=== PATIENT | female | born 1995 | race Two or more races ===

== ENCOUNTER → 2017-04-08 | Outpatient (REF) | payer MEDICAID ==
[~2017-04-08] MED LIST: /MOM400 PO; ACET50TA PO; DOCU10ELUD PO
[2017-04-08 16:21] LABS: MEAN CORPUSCULAR HEMOGLOBIN 31.7 pg (27.0-33.0); MEAN CORPUSCULAR HGB CONC 31.9 g/dl (32.0-36.5); MEAN CORPUSCULAR VOLUME 99.5 fl (80.0-96.0); RED CELL DISTRIBUTION WIDTH 12.6 % (11.5-14.5); WHITE BLOOD COUNT 4.2 10^3/uL (4.0-10.0)
[2017-04-08 16:56] LABS: VITAMIN B12 LEVEL 289 PG/ML (247-911)
[2017-04-08 17:17] LABS: ALBUMIN 3.7 GM/DL (3.2-5.2); ALBUMIN/GLOBULIN RATIO 1.23 (1.00-1.93); ALKALINE PHOSPHATASE 49 U/L (45-117); ALT/SGPT 12 U/L (12-78); ANION GAP 4 MEQ/L (8-16); AST/SGOT 13 U/L (15-37); BILIRUBIN,TOTAL 0.3 MG/DL (0.2-1.0); BLOOD UREA NITROGEN 11 MG/DL (7-18); CALCIUM LEVEL 8.4 MG/DL (8.5-10.1); CARBON DIOXIDE LEVEL 31 MEQ/L (21-32); CHLORIDE LEVEL 107 MEQ/L (98-107); CREATININE FOR GFR 0.62 MG/DL (0.55-1.02); FERRITIN 18 NG/ML (8-252); GLOMERULAR FILTRATION RATE > 60.0 (>60); GLUCOSE, FASTING 71 MG/DL (70-105); PERCENT SATURATION 12.6 % (13.2-45.0); POTASSIUM SERUM 4.5 MEQ/L (3.5-5.1); SODIUM LEVEL 142 MEQ/L (136-145); TOTAL IRON BINDING CAPACITY 340 UG/DL (250-450); TOTAL PROTEIN 6.7 GM/DL (6.4-8.2)
== END ==
LOC: M SFHCPLAZ 14:35
PROVIDERS: ATTEND Nurse Practitioner Adult Health
DX: Z86.2 Personal history of diseases of the blood and blood-forming organs and certain disorders involving the immune mechanism (principal); Z83.49 Family history of other endocrine, nutritional and metabolic diseases

== ENCOUNTER 2017-05-29 09:52 | Emergency (ER) | payer MEDICAID, OTHER ==
[~2017-05-29] VITALS: Ht 167.6 cm; Wt 58.2 kg
[2017-05-29 09:52] VITALS: BP 129/58
[2017-05-29] MEDS ORDERED: RANI15TA PO (09:58)
--- NOTE | 2017-05-29 10:48 | REP ---
Clinical: Trauma. Technique: AP, lateral, bilateral oblique views of the right fourth and fifth digits. Findings: There is a small nondisplaced corner fracture at the base of the fourth distal phalanx. No other fracture dislocation appreciated. Remainder examination appears normal. Impression: Nondisplaced corner fracture at the base of the fourth distal phalanx. Signed by Laureano Weiss MD 05/29/2017 10:39 A
--- NOTE | 2017-05-29 10:52 | REP ---
Clinical: Trauma. Technique: AP cephalic and caudal angled views of the sacrum with lateral view of the sacrum. Findings: Sacroiliac joints are symmetric and within normal limits. The sacrum appears intact. No obvious sacrococcygeal fracture or subluxation is appreciated. Impression: No obvious acute fracture. Signed by Laureano Weiss MD 05/29/2017 10:43 A
== END 2017-05-29 11:11 | disposition home or self-care (01) ==
LOC: M ED 09:52
DX: S30.0XXA Contusion of lower back and pelvis, initial encounter (principal); S62.344A Nondisplaced fracture of base of fourth metacarpal bone, right hand, initial encounter for closed fracture; Y04.8XXA Assault by other bodily force, initial encounter; Y92.018 Other place in single-family (private) house as the place of occurrence of the external cause; Y93.89 Activity, other specified; Y99.8 Other external cause status; Z79.899 Other long term (current) drug therapy

== ENCOUNTER 2017-06-26 10:28 | Emergency (ER) | payer OTHER ==
[2017-06-26 11:10] LABS: BASO % 0.3 % (0.0-1.0); EOS # 0.1 10^3/uL (0.0-0.50); EOS % 1.5 % (0.0-3.0); IMMATURE GRANULOCYTE % 0.3 % (0-0); LYMPH # 1.5 10^3/uL (1.5-6.5); LYMPH % 25.6 % (24.0-44.0); MEAN CORPUSCULAR HEMOGLOBIN 30.7 pg (27.0-33.0); MEAN CORPUSCULAR HGB CONC 33.2 g/dl (32.0-36.5); MEAN CORPUSCULAR VOLUME 92.6 fl (80.0-96.0); MONO # 0.2 10^3/uL (0.0-0.8); MONO % 3.7 % (0.0-5.0); NEUTROPHILS # 4.1 10^3/uL (1.8-7.7); NEUTROPHILS % 68.6 % (36.0-66.0); PLATELET COUNT, AUTOMATED 231 10^3/uL (150-450); RED CELL DISTRIBUTION WIDTH 12.3 % (11.5-14.5); WHITE BLOOD COUNT 5.9 10^3/uL (4.0-10.0)
[2017-06-26 11:18] LABS: AMORPHOUS SEDIMENT RFX SMALL (NEGATIVE); KETONE, URINE AUTO RFX NEGATIVE (NEGATIVE); LEUKOCYTE ESTERASE UR AUTO RFX NEGATIVE (NEGATIVE); NITRITE, URINE AUTO RFX NEGATIVE (NEGATIVE); RBC, URINE AUTO RFX 4 /HPF (0-3); SQUAM EPITHELIAL CELL UR AURFX 3 /HPF (0-6); WBC, URINE AUTO RFX 2 /HPF (0-3)
[2017-06-26 11:57] LABS: ANION GAP 5 MEQ/L (8-16); BLOOD UREA NITROGEN 8 MG/DL (7-18); CALCIUM LEVEL 8.5 MG/DL (8.5-10.1); CARBON DIOXIDE LEVEL 27 MEQ/L (21-32); CHLORIDE LEVEL 105 MEQ/L (98-107); CREATININE FOR GFR 0.54 MG/DL (0.55-1.02); GLOMERULAR FILTRATION RATE > 60.0 (>60); GLUCOSE, FASTING 87 MG/DL (70-105); HCG, SERUM QUANTITATIVE 13117 MIU/ML; POTASSIUM SERUM 3.6 MEQ/L (3.5-5.1); SODIUM LEVEL 137 MEQ/L (136-145)
== END 2017-06-26 12:21 | disposition home or self-care (01) ==
LOC: M ED 10:28
DX: O26.891 Other specified pregnancy related conditions, first trimester (principal); R10.2 Pelvic and perineal pain; Z3A.01 Less than 8 weeks gestation of pregnancy
CPT/HCPCS: 76801

== ENCOUNTER → 2017-07-16 | Outpatient (CLI) | payer OTHER ==
[2017-07-16 13:20] LABS: BASO % 0.4 % (0.0-1.0); EOS % 0.6 % (0.0-3.0); HEMATOCRIT 38.7 % (36.0-47.0); HEMOGLOBIN 12.9 g/dl (12.0-16.0); IMMATURE GRANULOCYTE % 0.2 % (0-0); LYMPH # 1.8 10^3/uL (1.5-6.5); MEAN CORPUSCULAR HEMOGLOBIN 30.9 pg (27.0-33.0); MEAN CORPUSCULAR HGB CONC 33.3 g/dl (32.0-36.5); MEAN CORPUSCULAR VOLUME 92.8 fl (80.0-96.0); MONO # 0.4 10^3/uL (0.0-0.8); MONO % 7.4 % (0.0-5.0); NEUTROPHILS % 57.4 % (36.0-66.0); PLATELET COUNT, AUTOMATED 280 10^3/uL (150-450); RED BLOOD COUNT 4.17 10^6/uL (4.00-5.40); RED CELL DISTRIBUTION WIDTH 12.5 % (11.5-14.5); WHITE BLOOD COUNT 5.3 10^3/uL (4.0-10.0)
[2017-07-16 13:55] LABS: RUBELLA IgG QUALITATIVE IMMUNE (IMMUNE)
[2017-07-16 13:56] LABS: HBsAg Prenatal NEGATIVE (NEGATIVE)
[2017-07-16 14:24] LABS: HEPATITIS C VIRUS ABY INDEX 0.1 INDEX (<0.8)
[2017-07-16 14:25] LABS: HIV 1&2 SCREEN CENTAUR NEGATIVE (NEGATIVE)
[2017-07-16 16:49] LABS: CHLAMYDIA DNA AMPLIFICATION NEGATIVE (NEGATIVE); GC DNA AMPLIFICATION NEGATIVE (NEGATIVE)
== END ==
LOC: M SMT 09:14
DX: Z36.89 Encounter for other specified antenatal screening (principal); Z3A.09 9 weeks gestation of pregnancy
CPT/HCPCS: 86762

== ENCOUNTER 2017-09-07 18:50 | Emergency (ER) | payer OTHER ==
[2017-09-07 20:48] LABS: APPEARANCE, URINE HAZY (CLEAR); BACTERIA, URINE AUTO NEGATIVE (NEGATIVE); BILIRUBIN, URINE AUTO NEGATIVE (NEGATIVE); BLOOD, URINE BLOOD NEGATIVE (NEGATIVE); CALCIUM OXALATE CRYSTALS SMALL; COLOR, URINE AMBER (YELLOW); GLUCOSE, URINE (UA) AUTO NEGATIVE (NEGATIVE); KETONE, URINE AUTO TRACE mg/dL (NEGATIVE); LEUKOCYTE ESTERASE, URINE AUTO 2+ (NEGATIVE); MUCUS, URINE SMALL (NEGATIVE); NITRITE, URINE AUTO NEGATIVE (NEGATIVE); PROTEIN, URINE AUTO NEGATIVE (NEGATIVE); RBC, URINE AUTO 2 /HPF (0-3); SPECIFIC GRAVITY URINE AUTO 1.024 (1.002-1.035); SQUAMOUS EPITHELIAL CELL UR AU 2 /HPF (0-6); WBC, URINE AUTO 7 /HPF (0-3)
[2017-09-07 21:52] LABS: HCG, SERUM QUANTITATIVE 4538 MIU/ML
== END 2017-09-07 22:49 | disposition home or self-care (01) ==
LOC: M ED 18:50
DX: O20.0 Threatened abortion (principal); Z3A.17 17 weeks gestation of pregnancy
CPT/HCPCS: 76811

== ENCOUNTER → 2017-09-19 | Outpatient (CLI) | payer OTHER | LOC: M RAD 09:32 | DX: Z34.82 Encounter for supervision of other normal pregnancy, second trimester (principal); Z3A.19 19 weeks gestation of pregnancy | CPT/HCPCS: 76816 ==

== ENCOUNTER → 2017-10-13 | Outpatient (CLI) | payer OTHER | LOC: M RAD 15:03 | DX: Z34.82 Encounter for supervision of other normal pregnancy, second trimester (principal) | CPT/HCPCS: 76816 ==

== ENCOUNTER → 2018-01-12 | Outpatient (CLI) | payer OTHER | LOC: M RAD 14:40 | DX: Z34.83 Encounter for supervision of other normal pregnancy, third trimester (principal); Z36.89 Encounter for other specified antenatal screening; Z3A.35 35 weeks gestation of pregnancy | CPT/HCPCS: 76816 ==

== ENCOUNTER → 2018-01-16 | Outpatient (REF) | payer OTHER | LOC: M LAB REF 17:01 | DX: Z34.83 Encounter for supervision of other normal pregnancy, third trimester (principal); Z3A.00 Weeks of gestation of pregnancy not specified | CPT/HCPCS: 87081 ==

== ENCOUNTER 2018-01-29 15:47 | Inpatient (IN) | payer OTHER ==
[2018-01-29] MEDS: LR 1,000 ML IV (16:49)
[2018-01-29] MEDS: LACTATED RINGER'S 1000 ML IV (17:08)
[2018-01-29 17:11] LABS: HEMATOCRIT 31.8 % (36.0-47.0); HEMOGLOBIN 10.5 g/dl (12.0-15.5); MEAN CORPUSCULAR HEMOGLOBIN 30.8 pg (27.0-33.0); MEAN CORPUSCULAR VOLUME 93.3 fl (80.0-96.0); PLATELET COUNT, AUTOMATED 251 10^3/uL (150-450); RED BLOOD COUNT 3.41 10^6/uL (4.00-5.40); RED CELL DISTRIBUTION WIDTH 13.4 % (11.5-14.5)
[2018-01-29] MEDS: OXYTOCIN DRIP 30 UNITS in APPROPRIATE DILUENT 1 EA IV (17:25)
[2018-01-30] MEDS ORDERED: FENTANYL 2MCG/ML ROPIVACAINE 0.2% IN 0.9% NACL 200ML IVBAG As Ordered (00:27)
[2018-01-30] MEDS ORDERED: ONDANSETRON 4MG/2ML VIAL (J2405) As Ordered (01:21)
[2018-01-30] MEDS ORDERED: ONDANSETRON 4MG/2ML VIAL (J2405) IV ×2 (01:30→02:00)
[2018-01-30] MEDS ORDERED: LR 1,000 ML IV (01:54)
[2018-01-30] MEDS ORDERED: DOCUSATE SODIUM 100 MG CAP PO (02:00)
[2018-01-30] MEDS ORDERED: PROMETHAZINE 25 MG TAB PO (02:00)
[2018-01-30] MEDS ORDERED: RHOGAM 300 MCG (1500 IU) INJ (J2790) IM (02:00)
[2018-01-30] MEDS ORDERED: DIBUCAINE 1% OINTMENT 30GM TOP (02:00)
[2018-01-30] MEDS ORDERED: ACETAMINOPHEN 500 MG TAB PO (02:00)
[2018-01-30] MEDS ORDERED: IBUPROFEN 800 MG TAB PO (02:00)
[2018-01-30] MEDS ORDERED: MEASLES,MUMPS,RUBELLA VACCINE INJ (MMR-II) (90707) SC (02:00)
[2018-01-30] MEDS: OXYTOCIN DRIP 30 UNITS in APPROPRIATE DILUENT 1 EA IV (05:06)
[2018-01-30] MEDS: PRENATAL VITAMINS CHEWABLE TABLET PO (09:04)
[2018-01-31] MEDS: PRENATAL VITAMINS CHEWABLE TABLET PO (09:17)
== END 2018-01-31 15:50 | disposition home or self-care (01) | DRG 560 ==
LOC: M LDO 15:47 → M OBS 01-30 04:21 → M LDI 16:48
PROC: 10E0XZZ Delivery of Products of Conception, External Approach (ICD-10-PCS; principal; 2018-01-30)
DX: O69.81X0 Labor and delivery complicated by cord around neck, without compression, not applicable or unspecified (principal); Z37.0 Single live birth; Z3A.37 37 weeks gestation of pregnancy

== ENCOUNTER 2019-05-25 19:50 | Emergency (ER) | payer OTHER ==
[~2019-05-25] VITALS: Ht 167.6 cm; Wt 45.4 kg
[~2019-05-25 19:50] MED LIST changes: -/MOM400 PO; -ACET50TA PO; -DOCU10ELUD PO; +DOCU5LIQ PO; +IBUP-1114 PO; +MAPA500T17 PO; +MAPA500T2 PO; +MILK10SU PO; +PREN1TAB11 PO; +RANI15TA PO; +ZANT150T15 PO
[2019-05-25] MEDS ORDERED: NEXP1IMP SC (19:59)
--- NOTE | 2019-05-25 20:59 | REPVR ---
PROCEDURE INFORMATION: Exam: CT Head Without Contrast Exam date and time: 05/25/2019 8:13 PM Age: 24 years old Clinical history: Injury or trauma; Fall; Initial encounter; Blunt trauma (contusions or hematomas); Additional info: Fell off of couch, head injury w/ loc TECHNIQUE: Imaging protocol: Computed tomography of the head without contrast. Radiation optimization: All CT scans at this facility use at least one of these dose optimization techniques: automated exposure control; mA and/or kV adjustment per patient size (includes targeted exams where dose is matched to clinical indication); or iterative reconstruction. COMPARISON: No relevant prior studies available. FINDINGS: Brain: Normal. No hemorrhage. Unremarkable white matter. No mass effect. Ventricles: Normal. No ventriculomegaly. Bones/joints: Unremarkable. No acute fracture. Sinuses: Visualized sinuses are unremarkable. No fluid levels. Mastoid air cells: Visualized mastoid air cells are well aerated. Soft tissues: Unremarkable. IMPRESSION: Negative noncontrast head CT. Electronically signed by: Reagan Cotto On 05/25/2019 20:59:20 PM
--- NOTE | 2019-05-25 21:03 | REPVR ---
PROCEDURE INFORMATION: Exam: CT Cervical Spine Without Contrast Exam date and time: 05/25/2019 8:53 PM Age: 24 years old Clinical history: Injury or trauma; Fall; Initial encounter; Blunt trauma TECHNIQUE: Imaging protocol: Computed tomography images of the cervical spine without contrast. Radiation optimization: All CT scans at this facility use at least one of these dose optimization techniques: automated exposure control; mA and/or kV adjustment per patient size (includes targeted exams where dose is matched to clinical indication); or iterative reconstruction. COMPARISON: No relevant prior studies available. FINDINGS: Vertebrae: No acute fracture. Normal alignment. Discs/Spinal canal/Neural foramina: No spinal stenosis. No neural foraminal narrowing. Soft tissues: Unremarkable. Lungs: Lung apices are normal. IMPRESSION: Negative CT cervical spine. No fracture or subluxation is evident and no spinal or foraminal stenosis. Electronically signed by: Reagan Cotto On 05/25/2019 21:03:33 PM
[2019-05-25 22:54] VITALS: BP 102/63
--- NOTE | 2019-05-26 07:42 | REP ---
Clinical: Trauma . Technique: Internal rotation, external rotation, and Y view right shoulder . Findings: No acute fracture or dislocation. The acromioclavicular and glenohumeral joints are intact. No periarticular calcifications or degenerative changes are appreciated. Sub acromial space is normal. Surrounding soft tissues are unremarkable. Impression: Normal right shoulder radiographs. Electronically Signed by Laureano Weiss MD 05/26/2019 07:34 A
== END 2019-05-25 23:05 | disposition home or self-care (01) ==
LOC: M ED 19:50
DX: S16.1XXA Strain of muscle, fascia and tendon at neck level, initial encounter (principal); S06.0X9A Concussion with loss of consciousness of unspecified duration, initial encounter; S43.51XA Sprain of right acromioclavicular joint, initial encounter; W08.XXXA Fall from other furniture, initial encounter; Y92.099 Unspecified place in other non-institutional residence as the place of occurrence of the external cause; Y93.9 Activity, unspecified; Y99.9 Unspecified external cause status; K21.9 Gastro-esophageal reflux disease without esophagitis; Z79.3 Long term (current) use of hormonal contraceptives

== ENCOUNTER 2022-04-16 07:17 | Emergency (ER) | payer OTHER ==
[~2022-04-16] VITALS: Ht 167.6 cm; Wt 54.5 kg
[~2022-04-16 07:17] MED LIST changes: +ETON68IM SC
[2022-04-16] MEDS ORDERED: NAPR220C14 PO (07:29)
[2022-04-16] MEDS ORDERED: MORPHINE 10 MG/ML 1ML VIAL IM ONE (09:20)
[2022-04-16] MEDS ORDERED: ONDANSETRON 4MG ORAL DISINTEGRATING TAB PO ONE (09:20)
[2022-04-16] MEDS ORDERED: PERC5TAB12 PO (11:29)
[2022-04-16 11:49] VITALS: BP 121/62
== END 2022-04-16 11:51 | disposition home or self-care (01) ==
LOC: M ED 07:17
DX: S76.012A Strain of muscle, fascia and tendon of left hip, initial encounter (principal); S89.92XA Unspecified injury of left lower leg, initial encounter; Y92.099 Unspecified place in other non-institutional residence as the place of occurrence of the external cause
CPT/HCPCS: 73502; 73564; 96372; 99284; J2270

== ENCOUNTER 2022-04-29 15:05 | Emergency (ER) | payer OTHER ==
[~2022-04-29 15:05] MED LIST changes: +NAPR220C14 PO; +PERC5TAB12 PO
[2022-04-29] MEDS ORDERED: tiZANidine 4 MG TAB PO ONE (15:30)
[2022-04-29] MEDS ORDERED: ACETAMINOPHEN 325 MG TAB PO ONE (15:30)
[2022-04-29] MEDS ORDERED: IBUP-1022 PO (16:04)
[2022-04-29] MEDS ORDERED: ZANA4TAB PO (16:04)
[2022-04-29] MEDS ORDERED: ACET325C5 PO (16:04)
[2022-04-29 16:37] VITALS: BP 123/70
== END 2022-04-29 16:43 | disposition home or self-care (01) ==
LOC: M ED 15:05 → EDBD 15:05 → M ED 16:43
DX: S83.412A Sprain of medial collateral ligament of left knee, initial encounter (principal); W01.0XXA Fall on same level from slipping, tripping and stumbling without subsequent striking against object, initial encounter; Z79.899 Other long term (current) drug therapy

== ENCOUNTER → 2022-06-12 | Outpatient (CLI) | payer OTHER ==
[~2022-06-12] MED LIST changes: +ACET325C5 PO; +IBUP-1022 PO; +ZANA4TAB PO
[2022-06-12 14:59] LABS: BASO % 0.4 % (0.0-1.0); EOS # 0.1 10^3/uL (0.0-0.5); EOS % 1.1 % (0.0-3.0); HEMATOCRIT 38.9 % (36.0-47.0); HEMOGLOBIN 12.3 g/dl (12.0-15.5); LYMPH # 1.9 10^3/uL (1.5-5.0); MEAN CORPUSCULAR HEMOGLOBIN 30.5 pg (27.0-33.0); MEAN CORPUSCULAR HGB CONC 31.6 g/dl (32.0-36.5); MEAN CORPUSCULAR VOLUME 96.5 fl (80.0-96.0); MONO # 0.4 10^3/uL (0.0-0.8); MONO % 8.9 % (2.0-8.0); NEUTROPHILS # 2.1 10^3/uL (1.5-8.5); NEUTROPHILS % 47.2 % (36.0-66.0); PLATELET COUNT, AUTOMATED 285 10^3/uL (150-450); RED BLOOD COUNT 4.03 10^6/uL (4.00-5.40); WHITE BLOOD COUNT 4.5 10^3/uL (4.0-10.0)
[2022-06-12 15:19] LABS: ERYTHROCYTE SEDIMENTATION RATE 12 mm/hr (0-20)
[2022-06-12 15:31] LABS: URIC ACID 4.2 MG/DL (3.1-7.8)
[2022-06-12 15:32] LABS: C REACTIVE PROTEIN QUANTITATIV < 0.40 MG/DL (<1.0)
[2022-06-12 15:34] LABS: ALKALINE PHOSPHATASE 52 U/L (46-116); ALT/SGPT < 9 U/L (7.0-40); AST/SGOT 14 U/L (<34); BILIRUBIN,TOTAL 0.7 MG/DL (0.3-1.2); BLOOD UREA NITROGEN 14 MG/DL (9-23); CARBON DIOXIDE LEVEL 27 MMOL/L (20-31); CHLORIDE LEVEL 105 MMOL/L (98-107); CREATININE FOR GFR 0.72 MG/DL (0.55-1.30); GLOMERULAR FILTRATION RATE > 60.0 (>60); GLUCOSE, FASTING 74 MG/DL (60-100); POTASSIUM SERUM 4.4 MMOL/L (3.5-5.1); RHEUMATOID FACTOR QUANT 6.9 IU/ML (<14); SODIUM LEVEL 139 MMOL/L (136-145)
[2022-06-12 16:06] LABS: HIV 1&2 SCREEN CENTAUR NEGATIVE (NEGATIVE)
[2022-06-12 16:14] LABS: HEPATITIS C VIRUS ABY INDEX 0.1 INDEX (<0.8)
== END ==
LOC: M PLALAB 11:26
PROVIDERS: ATTEND Family Medicine
DX: Z11.9 Encounter for screening for infectious and parasitic diseases, unspecified (principal); M25.562 Pain in left knee; M25.561 Pain in right knee; M25.50 Pain in unspecified joint

== ENCOUNTER → 2022-06-12 | Outpatient (REF) | payer OTHER | LOC: M SFHCPLAZ 11:27 | PROVIDERS: ATTEND Family Medicine | DX: Z53.20 Procedure and treatment not carried out because of patient's decision for unspecified reasons (principal) ==

== ENCOUNTER 2022-06-29 10:03 | Emergency (ER) | payer OTHER ==
[~2022-06-29] VITALS: Ht 167.6 cm; Wt 53.1 kg
[2022-06-29 13:31] LABS: BASO % 0.3 % (0.0-1.0); EOS % 0.3 % (0.0-3.0); HEMATOCRIT 36.9 % (36.0-47.0); HEMOGLOBIN 11.9 g/dl (12.0-15.5); LYMPH # 1.8 10^3/uL (1.5-5.0); LYMPH % 29.7 % (24.0-44.0); MEAN CORPUSCULAR HEMOGLOBIN 30.6 pg (27.0-33.0); MEAN CORPUSCULAR HGB CONC 32.2 g/dl (32.0-36.5); MEAN CORPUSCULAR VOLUME 94.9 fl (80.0-96.0); MONO # 0.4 10^3/uL (0.0-0.8); MONO % 6.7 % (2.0-8.0); NEUTROPHILS # 3.8 10^3/uL (1.5-8.5); NEUTROPHILS % 62.8 % (36.0-66.0); PLATELET COUNT, AUTOMATED 235 10^3/uL (150-450); RED BLOOD COUNT 3.89 10^6/uL (4.00-5.40); WHITE BLOOD COUNT 6.1 10^3/uL (4.0-10.0)
[2022-06-29 14:03] LABS: ALBUMIN 4.1 G/DL (3.2-5.2); ALKALINE PHOSPHATASE 45 U/L (46-116); ALT/SGPT < 9 U/L (7.0-40); AST/SGOT 15 U/L (<34); BILIRUBIN,TOTAL 0.6 MG/DL (0.3-1.2); BLOOD UREA NITROGEN 8 MG/DL (9-23); CALCIUM LEVEL 8.6 MG/DL (8.5-10.1); CARBON DIOXIDE LEVEL 22 MMOL/L (20-31); CHLORIDE LEVEL 108 MMOL/L (98-107); CREATININE FOR GFR 0.53 MG/DL (0.55-1.30); GLOMERULAR FILTRATION RATE > 60.0 (>60); GLUCOSE, FASTING 91 MG/DL (60-100); PHOSPHORUS LEVEL 3.1 MG/DL (2.5-4.9); POTASSIUM SERUM 3.3 MMOL/L (3.5-5.1); SODIUM LEVEL 142 MMOL/L (136-145); TOTAL PROTEIN 6.4 G/DL (5.7-8.2)
[2022-06-29] MEDS ORDERED: POTASSIUM CHLORIDE 10MEQ SR TABLET PO ONE (14:05)
[2022-06-29 15:00] VITALS: BP 128/61
== END 2022-06-29 15:00 | disposition home or self-care (01) ==
LOC: M ED 10:03
DX: E87.6 Hypokalemia (principal); K21.9 Gastro-esophageal reflux disease without esophagitis

== ENCOUNTER 2022-08-13 12:48 | Emergency (ER) | payer OTHER ==
[~2022-08-13] VITALS: Ht 167.6 cm; Wt 54.5 kg
[2022-08-13 16:46] VITALS: BP 118/84
== END 2022-08-13 16:49 | disposition home or self-care (01) ==
LOC: M ED 12:48
DX: M25.532 Pain in left wrist (principal); M79.602 Pain in left arm; V43.52XA Car driver injured in collision with other type car in traffic accident, initial encounter; K21.9 Gastro-esophageal reflux disease without esophagitis

== ENCOUNTER → 2022-09-09 | Outpatient (CLI) | payer OTHER | LOC: M SOG 14:26 | PROVIDERS: ATTEND Orthopaedic Surgery Hand Surgery | DX: M25.532 Pain in left wrist (principal) ==

== ENCOUNTER 2023-09-03 01:00 | Emergency (ER) | payer OTHER ==
[2023-09-03 02:18] LABS: BASO % 0.5 % (0.0-1.0); EOS % 0.3 % (0.0-3.0); HEMATOCRIT 39.4 % (36.0-47.0); LYMPH # 2.1 10^3/uL (1.5-5.0); MEAN CORPUSCULAR HEMOGLOBIN 31.1 pg (27.0-33.0); MEAN CORPUSCULAR VOLUME 94.3 fl (80.0-96.0); MONO # 0.4 10^3/uL (0.0-0.8); MONO % 6.6 % (2.0-8.0); NEUTROPHILS # 3.5 10^3/uL (1.5-8.5); NEUTROPHILS % 57.4 % (36.0-66.0); PLATELET COUNT, AUTOMATED 283 10^3/uL (150-450); RED BLOOD COUNT 4.18 10^6/uL (4.00-5.40); WHITE BLOOD COUNT 6.1 10^3/uL (4.0-10.0)
[2023-09-03 02:45] LABS: BLOOD UREA NITROGEN 15 MG/DL (9-23); CALCIUM LEVEL 8.5 MG/DL (8.5-10.1); CARBON DIOXIDE LEVEL 27 MMOL/L (20-31); CHLORIDE LEVEL 106 MMOL/L (98-107); CK-MB VALUE MASS < 1.0 NG/ML (<3.6); CREATININE FOR GFR 0.88 MG/DL (0.55-1.30); GLOMERULAR FILTRATION RATE > 60.0 (>60); GLUCOSE, FASTING 126 MG/DL (60-100); POTASSIUM SERUM 3.6 MMOL/L (3.5-5.1); SODIUM LEVEL 139 MMOL/L (136-145)
[2023-09-03 02:46] LABS: CPK CREATINE PHOSPHOKINASE 90 U/L (34-145); MB/CK RELATIVE INDEX 1.11 (< OR =4)
[2023-09-03 03:21] VITALS: BP 131/73; TEMP 98.6; O2SAT 98
== END 2023-09-03 05:59 | disposition left against medical advice (07) ==
LOC: M ED 01:00
DX: Z53.21 Procedure and treatment not carried out due to patient leaving prior to being seen by health care provider (principal)

== ENCOUNTER 2024-04-29 22:34 | Emergency (ER) | payer OTHER, SELFPAY ==
[~2024-04-29] VITALS: Ht 167.6 cm; Wt 63.4 kg
[2024-04-29 22:35] VITALS: BP 133/64; TEMP 99.6; O2SAT 100
== END 2024-04-30 01:30 | disposition left against medical advice (07) ==
LOC: M ED 22:34
DX: Z53.21 Procedure and treatment not carried out due to patient leaving prior to being seen by health care provider (principal)

== ENCOUNTER → 2024-11-12 | Outpatient (CLI) | payer OTHER | LOC: M WUC 10:39 | PROVIDERS: ATTEND Nurse Practitioner Family | DX: M79.641 Pain in right hand (principal) ==